=== PATIENT | male | born 1955 | race Caucasian/White ===

== ENCOUNTER 2022-11-11 12:18 | Outpatient (OUT) | payer MEDICARE, OTHER, SELFPAY ==
[2022-11-11 13:18] LABS: Prostate Specific Antigen Dx 2.09 ng/mL (<=4.00)
== END 2022-11-11 12:19 | disposition home or self-care (01) ==
LOC: LAB 12:25
PROVIDERS: PCP Family Medicine; Visit Provider Urology
DX: R97.20 Elevated prostate specific antigen [PSA] (principal); Z80.42 Family history of malignant neoplasm of prostate
CPT/HCPCS: 36415; 84153

== ENCOUNTER 2024-10-30 11:48 | Outpatient (OUT) | payer MEDICARE, OTHER, SELFPAY ==
--- OUTSIDE RECORDS SUMMARY | 2024-10-30 11:58 | XMS_ITS | Encounter Summary ---
Author Organization [facility] Address [id number] [address] [place] [address] Care Team Providers Care Marketing Communication Manager Name Role Phone Kandi Magana MD Primary Care Provider [phone] Encounter Details Date Type Department Care Team (Late st Contact Info) Description 05/31/2024 Telephone [facility] Pulmonary/Sleep Medicine [address] [phone] Dana Babin Social History Tobacco Use Types Packs/Day Years Used Date Smoking Tobacco: Never Smokeless Tobacco: Never Alcohol Use Standard Drinks/Week Comments Not Currently 0 (1 standard drink = 0.6 oz pur e alcohol) AUDIT-C Answer Date Recorded Frequency of Alcohol Consumption Never 02/13/2019 Average Number of Drinks Not on file 019 Frequency of Binge Drinking Not on file 01/27 Childcare Answer Date Recorded Childcare Unknown 08/06/2018 Employment Answer Date Recorded Employment Unknown 08/06/2018 Hunger Screening Answer Date Recorded Within the past 12 months we worried whether our food would run out before we got money to buy more. Never True 08/03/2022 Within the past 12 months th e food we bought just didn't last and we didn't have money to get more. Never True 08/03/2022 Purpose - Life Answer Date Recorded Purpose and direction in life Unknown Sex and Gender Information Value Date Recorded Sex Assigned at Not on file Legal Sex Male 1:08 PM EDT Gender Identity Not on file Sexual Orientation Not on file documented as of this encounter Miscellaneous Notes * Telephone Encounter - Dana Bowdenunders - 05/31/2024 11:15 AM EDT SENT PAP MASK AND SUPPLIES TO [facility] documented in this encounter Plan of Treatment Not on file documented as of this encounter Visit Diagnoses Not on filedocumented in this encounter Additional Health Concerns Assessment Noted Time A Body Mass Index follow-up plan has been documented for the patient 04/08/2021 11:47 AM EST documented as of this encounter Care Teams Marketing Communication Manager Relationship Specialty Start Date End Date Izzy, Kandi Ramos MD [address] [place] [address] PCP - General Family Medicine 03/03/17 documented as of this encounter
--- OUTSIDE RECORDS SUMMARY | 2024-10-30 11:58 | XMS_ITS | Clinical Summary ---
Author Organization [facility] Healthcare Address [address] [place] [address] Care Team Providers Care Blending Supervisor Name Role Phone Kandi Magana MD Unavailable [phone] Unallocated, [facility] Provider Primary Care Provi marina Allergies No known active allergies Medications finasteride (Proscar) 5 MG tablet Take 1 tablet by mouth in the morning. 3 Active alfuzosin ER (Uroxatral) 10 MG 24 hr tablet Take 1 tablet by mouth in the morning and 1 tablet before bedtime. 8 Active Multiple Vitamins-Minera ls (CENTRUM SILVER PO) Take 1 tablet by mouth 1 (one) time each day. Active cholecalciferol (Vitamin D-3) 50 MCG (1999 UT) capsule Take 1 capsule by mouth in the morning. Active acetaminophen (Tylenol 8 Hour) 650 MG ER tablet Take 650 mg by mouth every 8 (eight) hours if needed for moderate pain or mild pain. Active Krill Oil (Marianna-3) 500 MG capsule Take 1 capsule by mouth 1 (one) time each day. 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 04/18/2023 Diverticulosis 04/18/2023 Family hx of prostate cancer 04/18/2023 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 04/18/2023 Obesity (BMI 35.0-39.9 without comorbidity) 03/31 NICOL (obstructive sleep apnea) 04/18/2023 Prostatitis 04/18/2023 Status post right knee replacement 04/18/2023 Morbid obesity 11/28/2022 long-term (current) use of aspirin 03/09/2022 Resolved Problems Problem Noted Date Diagnosed Date Resolved Date Nocturia 04/18/2023 04/19/2023 Encounters Date Type Department Care Team Description 08/19/2024 Results Follow-Up [facility] [address] [facility] [address] [facility] [place] [address] Ursula Link LPN XR chest 2 views 08/16/2024 1:15 PM EDT Ancillary Procedure [facility] [address] [facility] [address] [place] [address] Shortness of breath; Acute right-sided thoracic back pain; Bronchitis 08/16/2024 1:00 PM EDT Office Visit [facility] [address] [facility] [place] [address] Tricia Nix NP Acute cough (Primary Dx); Shortness of breath; Acute right-sided thoracic back pain; Bronchitis 08/16/2024 Bamboo flowsheet [facility] [address] [facility] [place] [address] Tricia Nix NP 08/16/2024 Travel from Last 3 Months Immunizations Immunization Administration Dates Next Due ABRYSVO - Respiratory syncyt ial virus (RSV), vaccine, bivalent, protein subunit RSV prefusion F, diluent reconstituted, 0.5 mL, PF 06/01/2023 Influenza, High Dose Seasona l, Preservative Free 01/05/2024 Influenza, High-dose Seasona l, Quadrivalent, Preservative Free 01/13/2023,12/24/2021 Influenza, injectable, quadrivalent 11/25/2020,1 Influenza, injectable, quadr ivalent, preservative free 01/02/2019,01/03/2018,01/05/2017,2015 Influenza, seasonal, intrade rmal, preservative free 01/07/2015 Pneumococcal Conjugate PCV 20 04/12/2022 Tdap 06/01/2023,01/24/2012 Zoster, Recombinant 09/08/2022,06/16/2022 Family History Medical History Relation Name Comments COPD Father Sharan Headley Cancer Father Sharan Headley prostate cancer Heart attack Father Sharan Headley Heart disease Father Sharan Headley Prostate cancer Father Sharan Headley Lung cancer Maternal Grandfather No Known Problems Mother Stroke Paternal Grandfather Chaitanya Headley Melanoma Neg Hx Relation Name Status Comments Father Sharan Headley Maternal Grandfather Mother Paternal Grandfather Chaitanya Headley Social History Tobacco Use Types Packs/Day Years Used Date Smoking Tobacco: Never Passive Smoke Exposure: Past Smokeless Tobacco: Never Alcohol Use Standard Drinks/Week Comments Not Currently 0 (1 standard drink = 0.6 oz pur e alcohol) caffeine 2-3 cups/day [id number] Health Literacy Answer Date Recor ded How often do you need to hav e someone help you when you read instructions, pamphlets, or other written material from your doctor or pharmacy? Never 04/22/2024 Humiliation, Afraid, Rape, and Kick questionnair e Answer Date Recorded Within the last year, have y ou been afraid of your partner or ex-partner? No 11/28/2022 Within the last year, have y ou been humiliated or emotionally abused in other ways by your partner or ex-partner? No Within the last year, have y ou been kicked, hit, slapped, or otherwise physically hurt by your partner or ex-partner? No 11/28/2022 Within the last year, have y ou been raped or forced to have any kind of sexual activity by your partner or ex-partner? No 11/28/2022 Social Connection and Isolat ion Panel [NHANES] Answer Date Recorded In a typical week, how many times do you talk on the phone with family, friends, or neighbors? Once a week 04/22/2024 How often do you get togethe r with friends or relatives? Once a week 04/22/2024 How often do you attend chur ch or hindu services? More than 4 times per year 04/22/2024 Do you belong to any clubs o r organizations such as mormonism groups, unions, fraternal or athletic groups, or school groups? No 04/22/2024 How often do you attend meet ings of the clubs or organizations you belong to? Never 04/22/2024 Are you , , di vorced, , never , or living with a partner? 04/22/2024 AUDIT-C Answer Date Recorded Q1: How often do you have a drink containing alcohol? Never 04/22/2024 Q2: How many drinks containi ng alcohol do you have on a typical day when you are drinking? Patient does not drink Q3: How often do you have si x or more drinks on one occasion? Never 04/22/2024 Overall Financial Resource Strain (CARDIA) Answe r Date Recorded How hard is it for you to pa y for the very basics like food, housing, medical care, and heating? Not hard at all 04/18/2023 PHQ-2 Answer Date Recorded Patient Health Questionnaire-2 Score 0 04/22/2024 [facility] - Occupational Stress Questionnaire Answer Date Recorded Do you feel stress - tense, restless, nervous, or anxious, or unable to sleep at night because your mind is troubled all the time - these days? Not at all 04/22/2024 Exercise Vital Sign Answer Date Recorde d On average, how many days pe r week do you engage in moderate to strenuous exercise (like a brisk walk)? 5 days 04/22/2024 On average, how many minutes do you engage in exercise at this level? 40 min 04/22/2024 Hunger Vital Sign Answer Date Recorded Within the past 12 months, y ou worried that your food would run out before you got the money to buy more. Never true 04/22/19 25 Within the past 12 months, t he food you bought just didn't last and you didn't have money to get more. Never true 04/22/2024 PRAPARE - Transportation Answer Date Re corded In the past 12 months, has l ack of transportation kept you from medical appointments or from getting medications? No 03/31 In the past 12 months, has l ack of transportation kept you from meetings, work, or from getting things needed for daily living? No 04/22/2024 Housing Stability Vital Sign Answer Darryl e Recorded In the last 12 months, was t here a time when you were not able to pay the mortgage or rent on time? No 04/18/2023 In the last 12 months, how many places have you lived? 1 04/18/2023 In the last 12 months, was t here a time when you did not have a steady place to sleep or slept in a snf (including now)? No 04/18/2023 Housing Stability Vital Sign Answer Darryl e Recorded In the last 12 months, was t here a time when you were not able to pay the mortgage or rent on time? No 04/22/2024 In the past 12 months, how m any times have you moved where you were living? 0 04/22/2024 At any time in the past 12 m [facility], were you homeless or living in a snf (including now)? No 04/22/2024 Sex and Gender Information Value Date Recorded Sex Assigned at Male 11/28/2022 2:02 PM EDT Legal Sex Male 6:33 PM EDT Gender Identity Male 11/28/2022 2:02 PM EDT Sexual Orientation Not on file Occupation Industry Job Start Date Job End Date Retired Not on file Not on file Not on file Last Filed Vital Signs Vital Sign Reading Time Taken Comments Blood Pressure 126/64 08/16/2024 1:01 PM EDT Pulse 68 08/16/2024 1:01 PM EDT Temperature 36.8 C (98.2 F) 04/23/2024 8:25 AM EST Respiratory Rate - - Oxygen Saturation 95% 08/16/2024 1:01 PM EDT Inhaled Oxygen Concentration - - Weight 124 kg (274 lb 6.4 oz) 08/16/2024 1:01 PM EDT Height 186.7 cm (6' 1.5 ) 04/23/2024 8:25 AM EST Body Mass Index 35.71 04/23/2024 8:25 AM EST Plan of Treatment Upcoming Encounters Date Type Department Care Team (Late st Contact Info) Description 12/09/2024 9:50 AM EDT Office Visit [facility] [address] [place] [phone] Luz Shields, [place] [address] [place] [address] Health Maintenance Due Date Last Done Comments CT Colonography 1955 FIT-DNA 1955 Sigmoidoscopy 1955 FIT 03/28/2019 03/28/2018 FOBT 04/04/2019 04/04/2018 Influenza Vaccine (#1) 2024 , 01/13/2023, 12/24/2021, Additional history exists Medicare Annual Wellness (AWV) 04/23/2025 04/23/2024 , 04/19/2023 Colonoscopy 06/03/2031 06/02/2021, 040 07/2021, 06/02/2021, Additional history exists Colorectal Cancer Screening 06/03/2031 Pneumococcal Vaccine: 65+ Years Completed 3 Procedures Procedure Name Priority Date/Time Associated Diagnosis Comments XR CHEST 2 VIEWS Routine 08/16/2024 1:35 PM EDT Shortness of breath Acute right-sided thoracic back pain Bronchitis COLONOSCOPY Routine 06/02/2021 12:00 PM EDT FECAL OCCULT BLOOD EIA Routine 04/04/2018 12:00 PM EST from Last 3 Months or Most Recently Relevant to Health Maintenance Results * XR chest 2 views (08/16/2024 1:35 PM EDT) Anatomical Region Laterality Modality Chest Radiographic Aysha ging 08/16/2024 9:17 PM EDT Narrative 08/16/2024 9:17 PM EDT XR CHEST 2 VIEWS Reason for exam: Scute shortness of breath, lower posterior chest pain, cough Technique: PA and lateral view Findings: The heart size is normal. The pulmonary vascularity is unremarkable. The lungs are fully expanded and clear. No pleural abnormalities are seen. No evidence of mediastinal or hilar enlargement. The osseous structures are intact. No soft tissue abnormalities are seen. IMPRESSION: No evidence of active cardiopulmonary disease. Dictated on: 08/16/2024 7:07 PM This report has been electronically signed and approved by the interpreting Radiologist. Procedure Note Chaitanya Tran MD - 08/16/2024 XR CHEST 2 VIEWS Reason for exam: Scute shortness of breath, lower posterior chest pain,cough Technique: PA and lateral view Findings: The heart size is normal. The pulmonary vascularity is unremarkable. Thelungs are fully expanded and clear. No pleural abnormalities are seen.No evidence of mediastinal or hilar enlargement. The osseous structuresare intact. No soft tissue abnormalities are seen. IMPRESSION: No evidence of active cardiopulmonary disease. Dictated on: 08/16/2024 7:07 PM This report has been electronically signed and approved by theinterpreting Radiologist. 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 IMG XR PROCEDURES Final Re sult * Colonoscopy (06/02/2021 12:00 PM EDT) Anatomical Region Laterality Modality Endoscopy 06/02/2021 12:0 0 PM EDT Narrative 06/02/2021 12:00 PM EDT PERFORMED AT [facility] LOCATION:[id number] Procedure Note ANA CRISTINA FIGUEROA - 07/13/2022 PERFORMED AT [facility] LOCATION:[id number] Result [facility] Kandi Magana MD ENDOSCOPY PROCEDURE ORDERABLE S Final Result * FECAL OCCULT BLOOD EIA (04/04/2018 12:00 PM EST) FECAL OCCULT BLOOD EIA negative [facility] 04/04/2018 12:0 0 PM EST Kandi Magana MD [facility] Final Result [facility] from Last 3 Months or Most Recently Relevant to Health Maintenance Insurance MEDICARE [employer] Care Teams Blending Supervisor Relationship Specialty Start Date End Date Kandi Magana MD PCP - ACO Reach 02/26/23 Unallocated, [place] MD Lydia [address] [place] [address] PCP - General Family Medicine 10/23/24
--- OUTSIDE RECORDS SUMMARY | 2024-10-30 11:58 | XMS_ITS | Encounter Summary ---
Author Organization [facility] Healthcare Address [address] [facility] [place] [address] Care Team Providers Care Chip Tuner Name Role Phone Kandi Magana MD Primary Care Provider [phone] Kandi Magana MD Unavailable [phone] Tricia Nix NP Unavailable [phone] Unallocated, Nicho Provider Primary Care Provi marina Encounter Details Date Type Department Care Team (Late st Contact Info) Description 11/28/2022 Abstract [facility] [address] [place] [id number] aKndi Magana MD Social History Tobacco Use Types Packs/Day Years Used Date Smoking Tobacco: Never Smokeless Tobacco: Never Alcohol Use Standard Drinks/Week Comments Not Currently 0 (1 standard drink = 0.6 oz pur e alcohol) caffeine 2-3 cups/day Humiliation, Afraid, Rape, and Kick questionnair e [...] family, friends, or neighbors? Once a week 11/28/2022 How often do you get togethe r with friends or relatives? Once a week 11/28/2022 How often do you attend chur ch or evangelical services? More than 4 times per year 11/28/2022 Do you belong to any clubs o r organizations such as moravian groups, unions, fraternal or athletic groups, or school groups? Yes 11/28/2022 How often do you attend meet ings of the clubs or organizations you belong to? More than 4 times per year 11/28/2022 Are you , , di vorced, , never , or living with a partner? 11/28/2022 AUDIT-C Answer Date Recorded Q1: How often do you have a drink containing alcohol? Never 11/28/2022 Q2: How many drinks containi ng alcohol do you have on a typical day when you are drinking? Patient does not drink Q3: How often do you have si x or more drinks on one occasion? Never 11/28/2022 Overall Financial Resource Strain (CARDIA) Answe r Date Recorded How hard is it for you to pa y for the very basics like food, housing, medical care, and heating? Not hard at all 11/28/2022 [facility] - Occupational Stress Questionnaire Answer Date Recorded Do you feel stress - tense, restless, nervous, or anxious, or unable to sleep at night because your mind is troubled all the time - these days? Not at all 11/28/2022 Exercise Vital Sign Answer Date Recorde d On average, how many days pe r week do you engage in moderate to strenuous exercise (like a brisk walk)? 4 days 11/28/2022 On average, how many minutes do you engage in exercise at this level? 30 min 11/28/2022 Hunger Vital Sign Answer Date Recorded Within the past 12 months, y ou worried that your food would run out before you got the money to buy more. Never true 11/29/19 23 Within the past 12 months, t he food you bought just didn't last and you didn't have money to get more. Never true 11/28/2022 PRAPARE - Transportation Answer Date Re corded In the past 12 months, has l ack of transportation kept you from medical appointments or from getting medications? No 03/2022 In the past 12 months, has l ack of transportation kept you from meetings, work, or from getting things needed for daily living? No 11/28/2022 Housing Stability Vital Sign Answer Darryl e Recorded In the last 12 months, was t here a time when you were not able to pay the mortgage or rent on time? No 11/28/2022 In the last 12 months, how many places have you lived? 1 11/28/2022 In the last 12 months, was t here a time when you did not have a steady place to sleep or slept in a fpc (including now)? No 11/28/2022 Sex and Gender Information Value Date Recorded Sex Assigned at Male 11/28/2022 2:02 PM EDT Legal Sex Male 6:33 PM EDT Gender Identity Male 11/28/2022 2:02 PM EDT Sexual Orientation Not on file Occupation Industry Job Start Date Job End Date Retired Not on file Not on file Not on file COVID-19 Exposure Response Date Recorded In the last 10 days, have yo u been in contact with someone who was confirmed or suspected to have Coronavirus/COVID-19? No / Unsure 11/28/2022 2:10 PM EDT documented as of this encounter Functional Status * Audit-C Score Answer Date of Assessment Author 0 11/28/2022 2:10 PM EDT Jaelynt, Generic * Q1: How often do you have a drink containing alcohol? Answer Date of Assessment Author Never 11/28/2022 2:10 PM EDT Kateyhart, Generic * Q2: How many drinks containing alcohol do you have on a typical day when you are drinking? Answer Date of Assessment Author Patient does not drink 11/28/2022 2:10 PM EDT My chart, Generic * Q3: How often do you have six or more drinks on one occasion? Answer Date of Assessment Author Never 11/28/2022 2:10 PM EDT Jaelynt, Generic documented as of this encounter Plan of Treatment Upcoming Encounters Date Type Department Care Team (Late st Contact Info) Description 12/09/2024 9:50 AM EDT [facility] [address] [place] [address] Luz Shields, NICOLE [address] [place] [address] documented as of this encounter Visit Diagnoses Not on filedocumented in this encounter Care Teams Chip Tuner Relationship Specialty Start Date End Date Kandi Magana MD PCP - General Family Medicine 07/05/22 10/22/24 Kandi Magana MD PCP - ACO Reach 02/26/23 Unallocated, Nicho Freeman MD [address] [place] [address] PCP - General Family Medicine 10/23/24 Tricia Nix, ARCHANA [address] [place] [address] Nurse Practitioner Family Medicine 08/16/24 10/17/24 documented as of this encounter
--- OUTSIDE RECORDS SUMMARY | 2024-10-30 11:58 | XMS_ITS | Clinical Summary ---
Author Organization [employer] Address [facility] [id number] [address] [place] [address] Care Team Providers Care Electroneurodiagnostic Technologist Name Role Phone Kandi Magana MD Primary Care Provider [phone] Allergies No known active allergies Medications finasteride (PROSCAR) 5 mg tablet Take 1 tablet (5 mg total) by mouth Daily at 0700. Active alfuzosin HCl (ALFUZOSIN ORAL) Take 10 mg by mouth 2 (two) times a day. Active cholecalciferol , vitamin D3, (VITAMIN D3 ORAL) Take 2,000 Unit by mouth in the morning. Active krill oil 500 mg capsule Take 1 capsule by mouth in the morning. Active glucosamine/cho ndr molina A sod (glucosamine-ch ondroitin) 1,500-1,200 mg/30 mL liquid Take 1 tablet by mouth in the morning. Active multivit-min/fe rrous fumarate (MULTI VITAMIN ORAL) Take 1 tablet by mouth in the morning. Active acetaminophen (TYLENOL ARTHRITIS) 650 mg 8 hr tablet Take 1 tablet (650 mg total) by mouth every 8 (eight) hours as needed for pain. Active omega 4-ozk-eov-fish oil 300-1,000 mg capsule Take 1 capsule by mouth in the morning. 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 HL (hearing loss) 02/28/2008 Overview (02/29/2024): no hearing aids Varicella 02/27/1963 Cataract Overview (02/29/2024): start of Dental disease Overview (02/29/2024): crowns Diverticulosis of colon Visual impairment Family History Medical History Relation Name Comments COPD Father Sharan Newton Heart disease Father Sharan Newton Prostate cancer Father Sharan Newton Alcohol abuse Mother violeta newton Early Paternal Grandfather Chaitanya Newton Relation Name Status Comments Father Sharan Newton Mother violeta newton Paternal Grandfather Chaitanya Newton Social History Tobacco Use Types Packs/Day Years Used Date Smoking Tobacco: Never Smokeless Tobacco: Never Tobacco Cessation:Counseling Given: Not Answered Alcohol Use Standard Drinks/Week Comments Not Currently [...] on file Sexual Orientation Not on file Last Filed Vital Signs Vital Sign Reading Time Taken Comments Blood Pressure 132/71 08/03/2022 12:46 PM EDT Pulse 70 08/03/2022 12:46 PM EDT Temperature 37 C (98.6 F) 08/03/2022 12:46 PM EDT Respiratory Rate 18 03/08/2022 4:21 PM EST Oxygen Saturation 94% 08/03/2022 12:46 PM EDT Inhaled Oxygen Concentration - - Weight 120.2 kg (265 lb) 02/29/2024 9:43 AM EST Height 185.4 cm (6' 1 ) 02/29/2024 9:43 AM EST Body Mass Index 34.96 02/29/2024 9:43 AM EST Plan of Treatment Health Maintenance Due Date Last Done Comments Depression Screening 1967 Adult BMI Follow Up Plan 1974 Fall Risk Screening 2021 COVID-19 Vaccine (2023- 5 season) 2023 02/06/2022, 01/08/2021, 05/28/2020, Additional history exists Influenza Vaccine 10/28/2024 01/05/2024, , 12/24/2021, Additional history exists Adult BMI Screening 02/28/2025 02/29/2024 Tobacco Screening 05/30/2025 05/30/2024 Colonoscopy 06/03/2031 06/02/2021, 0407/2021, 06/02/2021, Additional history exists DTaP,Tdap and Td Vaccines (3 - Td or Tdap) 05/31/2033 06/01/2023, 01/24/2012 Zoster (Shingles) Vaccine Completed 09/08/2022, Medical Devices Implanted Type Area Justowriter Operator Device Identifier Shelf Expiration Date Model / Serial / Lot Cement Bn Bio 40gm Rpl [id number] - [id number] Implanted:Qt y: 2 on 03/08/2022 by Washington Modi MD at [facility] Cement Right: Knee [employer] 03/29/2024 [id number] / / [id number] Component Fem 9 Std Kn Rt Post Stab Cmnt Persona Cocr Strl - [id number] Implanted:Qt y: 1 on 03/08/2022 by Washington Modi MD at [facility] Orthopedic Implant Right: Knee [employer] 07/03/2030 [id number] / / [id number] Component Ptlr 35mm Persona Alply Kn Strl Lf - [id number] Implanted:Qt y: 1 on 03/08/2022 by Washington Modi MD at [facility] Orthopedic Implant Right: Patella [employer] 01/05/2027 [id number] / / [id number] Surface Artc 11mm Persona 6-9 Gh Kn Rt Vivacit-E Post Stab - [id number] Implanted:Qt y: 1 on 03/08/2022 by Washington Modi MD at [facility] Orthopedic Implant Right: Knee [employer] 04/27/2023 [id number] / / [id number] Baseplate Tib 5d G Kn Rt Cmnt Stm Persona Tiv Strl - [id number] Implanted:Qt y: 1 on 03/08/2022 by Washington Modi MD at [facility] Plate Right: Knee [employer] 10/20/2031 [id number] / / [id number] Procedures Procedure Name Priority Date/Time Associated Diagnosis Comments PROVATION COLONOSCOPY Routine 06/02/2021 1:09 PM EDT from Last 3 Months or Most Recently Relevant to Health Maintenance Results * Colonoscopy Report (06/02/2021 1:09 PM EDT) Narrative SYSTEMGENERATED, DOCUMENTATION - 06/02/2021 1:09 PM EDT This order has been auto-finalized for image and report archival in PACs. *For full report details, please reach out to your physician. 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
--- OUTSIDE RECORDS SUMMARY | 2024-10-30 11:59 | XMS_ITS | Encounter Summary ---
Author Organization [employer] Address [facility] [id number] [address] [place] [address] Care Team Providers Care Senior Data Architect Name Role Phone Kandi Magana MD Primary Care Provider [phone] Encounter Details Date Type Department Care Team (Late st Contact Info) Description 03/09/2022 Telephone [facility] [address] [place] [address] Eliza Cowart RMA Social History Tobacco Use Types Packs/Day Years [...] Employment Answer Date Recorded Employment Unknown 08/06/2018 Purpose - Life Answer Date Recorded Purpose and direction in life Unknown Sex and Gender Information Value Date Recorded Sex Assigned at Not on file Legal Sex Male 1:08 PM EDT Gender Identity Not on file Sexual Orientation Not on file COVID-19 Exposure Response Date Recorded In the last month, have you been in contact with someone who was confirmed or suspected to have Coronavirus / COVID-19? No / Unsure 03/10/2022 10:06 AM EST documented as of this encounter Miscellaneous Notes * Telephone Encounter - DUSTIN Russ - 03/09/2022 2:54 PM EST Called stating patient began home care PT for right knee today but refused OT. Please advise documented in this encounter Plan of Treatment Not on file documented as of this encounter Visit Diagnoses Not on filedocumented in this encounter Additional Health Concerns Assessment Noted Time A Body Mass Index follow-up plan has been documented for the patient 04/08/2021 11:47 AM EST documented as of this encounter Care Teams Senior Data Architect Relationship Specialty Start Date End Date Kandi Magana MD [address] [place] [address] PCP - General Family Medicine 03/03/17 documented as of this encounter
--- OUTSIDE RECORDS SUMMARY | 2024-10-30 11:59 | XMS_ITS | Encounter Summary ---
Author Organization [facility] [facility] tem Address [id number] [address] [place] [address] Care Team Providers Care Electric Tool Repairer Name Role Phone Kandi Magana MD Primary Care Provider [phone] Encounter Details Date Type Department Care Team (Late st Contact Info) Description 03/10/2022 Orders Only [facility] -Surgery Pre/Post [address] [place] [id number] Luna Blue, RN Social History Tobacco Use Types Packs/Day Years [...] AM EST documented as of this encounter Plan of Treatment Not on file documented as of this encounter Visit Diagnoses Not on filedocumented in this encounter Additional Health Concerns Assessment Noted Time A Body Mass Index follow-up plan has been documented for the patient 04/08/2021 11:47 AM EST documented as of this encounter Care Teams Electric Tool Repairer Relationship Specialty Start Date End Date Izzy, Kandi Ramos MD [address] [place] [address] PCP - General Family Medicine 03/03/17 documented as of this encounter
[2024-10-30 14:54] LABS: Prostate Specific Antigen Dx 1.74 ng/mL (<=4.00)
== END 2024-10-30 11:49 | disposition home or self-care (01) ==
LOC: LAB 11:50
PROVIDERS: Visit Provider Urology
DX: R97.20 Elevated prostate specific antigen [PSA] (principal)
CPT/HCPCS: 36415; 84153